=== PATIENT | male | born 1985 | race Caucasian/White ===

== ENCOUNTER 2016-11-16 16:54 | Emergency (ER) | payer OTHER ==
[2016-11-16 17:14] VITALS: BP 139/61; PULSE 81; RESP 16; TEMP 97.6
--- NOTE | 2016-11-16 17:37 | ED ---
General Adult HPI - General Chief complaint: Psychiatric Symptoms Stated complaint: mental health Time Seen by Provider: 11/16/16 17:16 Source: patient, family, RN notes reviewed Mode of arrival: ambulatory Limitations: no limitations - History of Present Illness Initial comments: Chief complaint history of present a 31-year-old male here with his significant other. The patient reports is a heroin addict and has a history of depression ADD and PTSD. He had been on medications or depression on 2 previous occasions and when he was on those he felt better. He also reports that his heroin addict last used this morning. Overdosed last year. Narcan program was explained to him and his significant other and all they have to do is call the health department to get the Narcan. She states he is here and wants to talk to a psychiatric nurse but is not suicidal. - Related Data Home Medications Medication Instructions Recorded Confirmed Acetaminophen [Tylenol] 325 mg PO Q4H PRN 11/16/16 11/16/16 Aspirin 325 mg PO DAILY PRN 11/16/16 11/16/16 Allergies Allergy/AdvReac Type Severity Reaction Status Date / Time No Known Allergies Allergy Verified 11/16/16 18:08 Review of Systems ROS Statement: Those systems with pertinent positive or pertinent negative responses have been documented in the HPI. Review of systems this time patient denies headache chest pain shows breath GI/ problems. All systems are reviewed. Past medical problems significant for ADD, PTSD depression. The patient's other problems include IV drug abuse for a long period of time usually opiates only. The patient had a history of septic arthritis due to IVDA to his left knee. His years ago. No problems this time. The patient's surgeries include left knee aspiration. Family history no cancers. Patient denies any ALLERGIES she does smoke strongly encouraged to stop denies alcohol use. ROS Other: All systems not noted in ROS Statement are negative. Past Medical History Past Medical History: Osteoarthritis (OA) Additional Past Medical History / Comment(s): left knee septic arthritis; hepatitis C History of Any Multi-Drug Resistant Organisms: MRSA Date of last positivie culture/infection: 02/22/16 MDRO Source:: Left Knee Past Surgical History: Orthopedic Surgery Additional Past Surgical History / Comment(s): left knee Past Psychological History: Depression Smoking Status: Current every day smoker Past Alcohol Use History: None Reported Past Drug Use History: Heroin General Exam - General Exam Comments Initial Comments: General: The patient is awake and alert, in no distress, and does not appear acutely ill. States she is depressed and wants to be put back on medications that worked well for him in the past. Denies being suicidal. Vital signs shows temperature 97.6 pulse 81 respiratory rate 16 pulse ox 96% room air blood pressure 139/61 Eye: Pupils are equal, round and reactive to light, extra-ocular movements are intact ; there is normal conjunctiva bilaterally. No signs of icterus. Ears, nose, mouth and throat: There are moist mucous membranes and no oral lesions. Neck: The neck is supple, there is no tenderness . Cardiovascular: There is a regular rate and rhythm. No murmur, rub or gallop is appreciated. Respiratory: Lungs are clear to auscultation, respirations are non-labored, breath sounds are equal. No wheezes, stridor, rales, or rhonchi. Gastrointestinal: No abdominal pain, no complaint of nausea vomiting or diarrhea. Back: There is no tenderness to palpation in the midline. There is no obvious deformity. No rashes noted. 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 Told to clean daily apply bacitracin and bandages. He demonstrates full range of motion. Neurological: No neuro deficits. Skin: Skin is warm and dry and no rashes or lesions are noted. Multiple tattoos Psychiatric: Past history of PTSD and depression. Wants to speak to a psychiatric nurse. He wants to get involved with an outpatient mental health program. Limitations: no limitations Course Vital Signs 11/16/16 17:11 Temperature 97.6 F Pulse Rate 81 Respiratory 16 Rate Blood Pressure 139/61 O2 Sat by Pulse 96 Oximetry Medical Decision Making - Medical Decision Making Medical decision making the patient's urine toxicology was positive for opiates and cocaine. Breath alcohol negative. EPS was notified to consult patient. The patient was evaluated by the psychiatric nurse. The plan the patient will be given follow-up numbers and recommendations for tomorrow. Including rehab program for opiate abuse. Again the patient is not suicidal. - Lab Data Lab Results 11/16/16 Range/Units 18:07 Urine Opiates Screen Detected H (NotDetected) Ur Oxycodone Screen Not Detected (NotDetected) Urine Methadone Screen Not Detected (NotDetected) Ur Propoxyphene Screen Not Detected (NotDetected) Ur Barbiturates Screen Not Detected (NotDetected) U Tricyclic Antidepress Not Detected (NotDetected) Ur Phencyclidine Scrn Not Detected (NotDetected) Ur Amphetamines Screen Not Detected (NotDetected) U Methamphetamines Scrn Not Detected (NotDetected) U Benzodiazepines Scrn Not Detected (NotDetected) Urine Cocaine Screen Detected H (NotDetected) U Marijuana (THC) Screen Not Detected (NotDetected) Disposition Clinical Impression: Depression, Opiate dependence Disposition: HOME SELF-CARE Condition: Fair Instructions: Depression (ED), Narcotic Abuse (ED) Additional Instructions: All follow up with community mental health. Consider rehab programs as listed on paperwork provided. Referrals: Karo Nunes MD [Primary Care Provider] - 1-2 days Time of Disposition: 21:28
== END 2016-11-16 21:35 | disposition home or self-care (01) ==
LOC: EC 16:54
DX: F11.20 Opioid dependence, uncomplicated (principal); F32.9 Major depressive disorder, single episode, unspecified; F17.200 Nicotine dependence, unspecified, uncomplicated
CPT/HCPCS: 80306; 82075; 99284

== ENCOUNTER 2018-06-20 04:34 | Emergency (ER) | payer OTHER ==
[2018-06-20 05:21] VITALS: RESP 18
[2018-06-20 06:07] LABS: Basophils # (A) 0.1 k/uL (0-0.2); Basophils % (A) 1 %; Eosinophils # (A) 0.2 k/uL (0-0.7); Eosinophils % (A) 3 %; HCT 43.8 % (39.0-53.0); HGB 14.8 gm/dL (13.0-17.5); Lymphocytes # (A) 1.1 k/uL (1.0-4.8); Lymphocytes % (A) 15 %; MCH 30.3 pg (25.0-35.0); MCHC 33.7 g/dL (31.0-37.0); Mean Platelet Volume 8.3; Monocytes # (A) 0.6 k/uL (0-1.0); Monocytes % (A) 8 %; Neutrophils # (A) 4.9 k/uL (1.3-7.7); Neutrophils % (A) 71 %; Platelet Count 180 k/uL (150-450); RBC 4.87 m/uL (4.30-5.90); RDW 13.3 % (11.5-15.5); WBC 6.9 k/uL (3.8-10.6)
[2018-06-20 06:16] LABS: ALT 20 U/L (21-72); AST 47 U/L (17-59); Albumin 4.4 g/dL (3.5-5.0); Alkaline Phosphatase 91 U/L (38-126); Amylase 49 U/L (30-110); Anion Gap 9 mmol/L; Blood Urea Nitrogen 19 mg/dL (9-20); Calcium 9.1 mg/dL (8.4-10.2); Carbon Dioxide 25 mmol/L (22-30); Chloride 103 mmol/L (98-107); Glucose 88 mg/dL (74-99); Lipase 40 U/L (23-300); Sodium 137 mmol/L (137-145); Total Protein 7.3 g/dL (6.3-8.2)
[2018-06-20 06:18] LABS: Potassium 4.8 mmol/L (3.5-5.1)
--- NOTE | 2018-06-20 07:10 | ED ---
Abdominal Pain HPI - General Source: patient Mode of arrival: ambulatory Limitations: no limitations - History of Present Illness MD Complaint: abdominal pain -: minutes(s) Location: LUQ, LLQ Radiation: none Migration to: no migration Severity: moderate Quality: cramping, aching Consistency: constant Improves With: nothing Worsens With: nothing Associated Symptoms: nausea, diarrhea (3 bowel movements) <Yovani Branch - Last Filed: 06/20/18 07:10> <Carlos Ramsey - Last Filed: 06/20/18 08:26> - General Chief Complaint: Abdominal Pain Stated Complaint: Abdominal Pain Time Seen by Provider: 06/20/18 05:10 - History of Present Illness Initial Comments: This patient is a 33-year-old man who presents to be evaluated for left-sided abdominal pain. He states that it reminds him of previous episode of colitis that he had. He states that over the past day he also had 3 bowel movements. He has not noticed blood or mucus. No fevers, possible chills. (Yovani rBanch) - Related Data Home Medications Medication Instructions Recorded Confirmed Acetaminophen [Tylenol] 325 mg PO Q4H PRN 11/16/16 11/16/16 Aspirin 325 mg PO DAILY PRN 11/16/16 11/16/16 Allergies Allergy/AdvReac Type Severity Reaction Status Date / Time No Known Allergies Allergy Verified 06/20/18 04:52 Review of Systems ROS Other: All systems not noted in ROS Statement are negative. Constitutional: Denies: fever, chills Respiratory: Denies: cough, dyspnea Cardiovascular: Denies: chest pain, palpitations, edema Gastrointestinal: Reports: abdominal pain, nausea, diarrhea. Denies: constipation, melena, hematochezia Genitourinary: Denies: dysuria, hematuria Musculoskeletal: Denies: back pain Skin: Denies: rash Neurological: Denies: headache <Yovani Branch - Last Filed: 06/20/18 07:10> ROS Other: All systems not noted in ROS Statement are negative. <Carlos Ramsey - Last Filed: 06/20/18 08:26> ROS Statement: Those systems with pertinent positive or pertinent negative responses have been documented in the HPI. Past Medical History Past Medical History: Osteoarthritis (OA) Additional Past Medical History / Comment(s): left knee septic arthritis; hepatitis C History of Any Multi-Drug Resistant Organisms: MRSA Date of last positivie culture/infection: 02/22/16 MDRO Source:: Left Knee Past Surgical History: Orthopedic Surgery Additional Past Surgical History / Comment(s): left knee Past Psychological History: Depression Smoking Status: Current every day smoker Past Alcohol Use History: None Reported Past Drug Use History: Heroin, Prescription Drug Abuse <Yovani Branch - Last Filed: 06/20/18 07:10> General Exam Limitations: no limitations General appearance: alert, in no apparent distress Head exam: Present: atraumatic, normocephalic Eye exam: Present: normal appearance. Absent: scleral icterus, conjunctival injection ENT exam: Present: normal oropharynx Respiratory exam: Present: normal lung sounds bilaterally. Absent: respiratory distress, wheezes, rales, rhonchi, stridor Cardiovascular Exam: Present: regular rate, normal rhythm, normal heart sounds. Absent: systolic murmur, diastolic murmur, rubs, gallop GI/Abdominal exam: Present: soft, tenderness (Vision is left-sided abdominal tenderness without rebound or guarding), normal bowel sounds. Absent: distended , guarding, rebound, rigid, mass, pulsatile mass, hernia Extremities exam: Present: normal inspection, normal capillary refill. Absent: pedal edema, calf tenderness Back exam: Present: normal inspection. Absent: CVA tenderness (R), CVA tenderness (L) Neurological exam: Present: alert Skin exam: Present: warm, dry, intact, normal color. Absent: rash <Yovani Branch - Last Filed: 06/20/18 07:10> Vital Signs 06/20/18 06/20/18 06/20/18 04:49 05:14 07:00 Temperature 98.2 F 98.2 F Pulse Rate 76 75 Respiratory 19 18 18 Rate Blood Pressure 120/67 123/82 121/48 O2 Sat by Pulse 98 99 97 Oximetry 06/20/18 07:30 Temperature Pulse Rate Respiratory 18 Rate Blood Pressure 122/51 O2 Sat by Pulse 97 Oximetry Medical Decision Making - Lab Data Result diagrams: 06/20/18 05:43 06/20/18 05:43 <Yovani Branch - Last Filed: 06/20/18 07:10> - Lab Data Result diagrams: 06/20/18 05:43 06/20/18 05:43 <Carlos Ramsey - Last Filed: 06/20/18 08:26> - Medical Decision Making CT abdomen pelvis show no acute abnormality. Patient was feeling better drinking water in the emergency department. Patient states she will follow-up. (Carlos Ramsey) - Lab Data Lab Results 06/20/18 06/20/18 Range/Units 05:43 05:43 WBC 6.9 (3.8-10.6) k/uL RBC 4.87 (4.30-5.90) m/uL Hgb 14.8 (13.0-17.5) gm/dL Hct 43.8 (39.0-53.0) % MCV 90.0 (80.0-100.0) fL MCH 30.3 (25.0-35.0) pg MCHC 33.7 (31.0-37.0) g/dL RDW 13.3 (11.5-15.5) % Plt Count 180 (150-450) k/uL Neutrophils % 71 % Lymphocytes % 15 % Monocytes % 8 % Eosinophils % 3 % Basophils % 1 % Neutrophils # 4.9 (1.3-7.7) k/uL Lymphocytes # 1.1 (1.0-4.8) k/uL Monocytes # 0.6 (0-1.0) k/uL Eosinophils # 0.2 (0-0.7) k/uL Basophils # 0.1 (0-0.2) k/uL ESR Cancelled Sodium 137 (137-145) mmol/L Potassium 4.8 (3.5-5.1) mmol/L Chloride 103 (98-107) mmol/L Carbon Dioxide 25 (22-30) mmol/L Anion Gap 9 mmol/L BUN 19 (9-20) mg/dL Creatinine 0.85 (0.66-1.25) mg/dL Est GFR (CKD-EPI)AfAm >90 (>60 ml/min/1.73 sqM) Est GFR (CKD-EPI)NonAf >90 (>60 ml/min/1.73 sqM) Glucose 88 (74-99) mg/dL Calcium 9.1 (8.4-10.2) mg/dL Total Bilirubin 1.0 (0.2-1.3) mg/dL AST 47 (17-59) U/L ALT 20 L (21-72) U/L Alkaline Phosphatase 91 (38-126) U/L Total Protein 7.3 (6.3-8.2) g/dL Albumin 4.4 (3.5-5.0) g/dL Amylase 49 (30-110) U/L Lipase 40 (23-300) U/L Disposition <Yovani Branch - Last Filed: 06/20/18 07:10> Is patient prescribed a controlled substance at d/c from ED?: No Time of Disposition: 08:26 <Carlos Ramsey - Last Filed: 06/20/18 08:26> Clinical Impression: Abdominal pain Disposition: HOME SELF-CARE Instructions: Abdominal Pain (ED) Referrals: Karo Nunes MD [Primary Care Provider] - 1-2 days
--- NOTE | 2018-06-20 07:38 | CT ---
EXAMINATION TYPE: CT abdomen pelvis wo con DATE OF EXAM: 06/20/2018 COMPARISON: NONE HISTORY: Abdominal pain CT DLP: 412.3 mGycm Automated exposure control for dose reduction was used. FINDINGS: Visualized portions of the lungs are clear. There is no pleural or pericardial fluid. The h eart is not enlarged. Within the abdomen, the liver is upper limits of normal in size. The gallbladder is contracted. The s pleen is unremarkable. Both adrenal glands are normal. There is no evidence of hydronephrosis or nephrolithiasis. The pancreas is not well-visualized. The retroperitoneum is unremarkable. The bladder is unremarkable. Both large and small bowel appear normal. The appendix is not visualized with certainty. There is no free fluid and no free air. No bony lesion is seen. IMPRESSION: UNREMARKABLE NONCONTRAST CT OF THE ABDOMEN AND PELVIS.
[2018-06-20 09:03] VITALS: BP 114/68; PULSE 76; TEMP 98.7
== END 2018-06-20 09:03 | disposition home or self-care (01) ==
LOC: EC 04:34
DX: R10.12 Left upper quadrant pain (principal); R10.32 Left lower quadrant pain; R19.7 Diarrhea, unspecified; R11.0 Nausea; F17.200 Nicotine dependence, unspecified, uncomplicated; Z79.82 Long term (current) use of aspirin
CPT/HCPCS: 36415; 74176; 80053; 82150; 83690; 85025; 85652; 99284

== ENCOUNTER 2019-09-06 23:32 | Observation (INO) | payer OTHER ==
[2019-09-07] MEDS ORDERED: PIPERACILLIN-TAZOBACTAM 3.375 GM in SODIUM CHLORIDE 0.9% 100 ML IVPB STA (00:38)
[2019-09-07] MEDS ORDERED: ONDANSETRON 4 MG/2 ML VIAL IVP STA (00:51)
[2019-09-07 01:22] LABS: Basophils % (A) 0 %; Eosinophils # (A) 0.1 k/uL (0-0.7); Eosinophils % (A) 1 %; HCT 48.3 % (39.0-53.0); HGB 15.9 gm/dL (13.0-17.5); Lymphocytes # (A) 2.1 k/uL (1.0-4.8); Lymphocytes % (A) 14 %; MCH 29.7 pg (25.0-35.0); MCHC 32.8 g/dL (31.0-37.0); MCV 90.4 fL (80.0-100.0); Mean Platelet Volume 8.2; Monocytes # (A) 1.1 k/uL (0-1.0); Monocytes % (A) 7 %; Neutrophils # (A) 12.1 k/uL (1.3-7.7); Neutrophils % (A) 77 %; Platelet Count 353 k/uL (150-450); RBC 5.34 m/uL (4.30-5.90); RDW 13.3 % (11.5-15.5); WBC 15.6 k/uL (3.8-10.6)
--- NOTE | 2019-09-07 01:23 | ED ---
General Adult HPI - General Chief complaint: Psychiatric Symptoms Stated complaint: mental health Time Seen by Provider: 09/06/19 23:40 Source: patient, EMS Mode of arrival: EMS Limitations: no limitations - History of Present Illness Initial comments: Catarino is a 34-year-old male with a history of depression and polysubstance abuse who presents to the emergency department today with multiple complaints. Patient was seen and evaluated earlier in the week for possible abscess on his left forearm secondary to IV drug abuse, he was prescribed Bactrim and reports that since beginning Bactrim the skin on his penis is begun peeling off and is incredibly painful. The patient reports that he was tested for sexual transmitted infections in April and was negative and has not had any new sexual partner since that time. Patient also adamantly denies any attempt to shoot up or inject drugs into any of his penile veins. Patient reports he doesn't feel well he feels nauseated but denies fevers cough or shortness of breath. Patient also states he's been off of all his medications including Suboxone and Trileptal and Klonopin for over a week. Patient reports because he can get his Suboxone he's been using heroin and just feels very sick and unwell. Patient states that because of everything going on he feels suicidal and just doesn't want to live anymore. - Related Data Home Medications Medication Instructions Recorded Confirmed Acetaminophen [Tylenol] 325 mg PO Q4H PRN 11/16/16 11/16/16 Aspirin 325 mg PO DAILY PRN 11/16/16 11/16/16 Allergies Allergy/AdvReac Type Severity Reaction Status Date / Time No Known Allergies Allergy Verified 09/06/19 23:48 Review of Systems ROS Statement: Those systems with pertinent positive or pertinent negative responses have been documented in the HPI. ROS Other: All systems not noted in ROS Statement are negative. Past Medical History Past Medical History: Osteoarthritis (OA) Additional Past Medical History / Comment(s): left knee septic arthritis; hepatitis C History of Any Multi-Drug Resistant Organisms: MRSA Date of last positivie culture/infection: 02/22/16 MDRO Source:: Left Knee Past Surgical History: Orthopedic Surgery Additional Past Surgical History / Comment(s): left knee Past Psychological History: Anxiety, Bipolar, Depression, PTSD Smoking Status: Current every day smoker Past Alcohol Use History: None Reported Past Drug Use History: Cocaine, Heroin, Prescription Drug Abuse General Exam - General Exam Comments Initial Comments: Physical Exam GENERAL: Patient is well-developed and well-nourished. Patient is nontoxic and well- hydrated and is in no distress. HENT: Normocephalic, Atraumatic. EYES: PERRL, EOMI PULMONARY: Unlabored respirations. No audible rales rhonchi or wheezing was noted. CARDIOVASCULAR: There is a regular rate and rhythm without any murmurs gallops or rubs. ABDOMEN: Soft and nontender with normal bowel sounds. SKIN: Skin is clear with no lesions or rashes and otherwise unremarkable. : Circumcised penis with sloughing of the skin on approximately 50% of the dorsal surface, there is some purulent drainage noted proximal to the glans on the dorsal surface NEUROLOGIC: Patient is alert and oriented x3. Moving all extremities spontaneously MUSCULOSKELETAL: Normal extremities with adequate strength and full range of motion. No lower extremity swelling or edema. No calf tenderness. PSYCHIATRIC: Depressed, suicidal Limitations: no limitations Course Vital Signs 09/06/19 23:38 Temperature 98.0 F Pulse Rate 111 H Respiratory 16 Rate Blood Pressure 122/69 O2 Sat by Pulse 98 Oximetry Medical Decision Making - Medical Decision Making The patient was seen and evaluated, history is obtained from the patient History and physical exam are concerning for infection on the penis, as well as suicidal ideation and polysubstance abuse Labs were ordered IV Zosyn ordered Labs resulted with leukocytosis, no elevation of lactic acid Patient will be admitted for IV antibiotics and evaluation by urology. Urology and psychiatry will be Consult in the patient's care. - Lab Data Result diagrams: 09/07/19 01:02 09/07/19 01:02 Lab Results 09/07/19 09/07/19 09/07/19 Range/Units 01:02 01:02 01:02 WBC 15.6 H (3.8-10.6) k/uL RBC 5.34 (4.30-5.90) m/uL Hgb 15.9 (13.0-17.5) gm/dL Hct 48.3 (39.0-53.0) % MCV 90.4 (80.0-100.0) fL MCH 29.7 (25.0-35.0) pg MCHC 32.8 (31.0-37.0) g/dL RDW 13.3 (11.5-15.5) % Plt Count 353 (150-450) k/uL Neutrophils % 77 % Lymphocytes % 14 % Monocytes % 7 % Eosinophils % 1 % Basophils % 0 % Neutrophils # 12.1 H (1.3-7.7) k/uL Lymphocytes # 2.1 (1.0-4.8) k/uL Monocytes # 1.1 H (0-1.0) k/uL Eosinophils # 0.1 (0-0.7) k/uL Basophils # 0.0 (0-0.2) k/uL Sodium 139 (137-145) mmol/L Potassium 4.6 (3.5-5.1) mmol/L Chloride 101 (98-107) mmol/L Carbon Dioxide 28 (22-30) mmol/L Anion Gap 10 mmol/L BUN 22 H (9-20) mg/dL Creatinine 1.62 H (0.66-1.25) mg/dL Est GFR (CKD-EPI)AfAm 63 (>60 ml/min/1.73 sqM) Est GFR (CKD-EPI)NonAf 55 (>60 ml/min/1.73 sqM) Glucose 94 (74-99) mg/dL Plasma Lactic Acid Alejandro 1.4 (0.7-2.0) mmol/L Calcium 9.5 (8.4-10.2) mg/dL Total Bilirubin 0.4 (0.2-1.3) mg/dL AST 34 (17-59) U/L ALT 29 (4-49) U/L Alkaline Phosphatase 131 H (38-126) U/L Total Protein 8.1 (6.3-8.2) g/dL Albumin 4.9 (3.5-5.0) g/dL Urine Color Urine Appearance (Clear) Urine pH (5.0-8.0) Ur Specific [place] (1.001-1.035) Urine Protein (Negative) Urine Glucose (UA) (Negative) Urine Ketones (Negative) Urine Blood (Negative) Urine Nitrite (Negative) Urine Bilirubin (Negative) Urine Urobilinogen (<2.0) mg/dL Ur Leukocyte Esterase (Negative) Urine RBC (0-5) /hpf Urine WBC (0-5) /hpf Urine WBC Clumps (None) /hpf Ur Squamous Epith Cells (0-4) /hpf Urine Bacteria (None) /hpf Hyaline Casts (0-2) /lpf Urine Mucus (None) /hpf Salicylates <1.0 mg/dL Urine Opiates Screen (NotDetected) Ur Oxycodone Screen (NotDetected) Urine Methadone Screen (NotDetected) Ur Propoxyphene Screen (NotDetected) Acetaminophen <10.0 ug/mL Ur Barbiturates Screen (NotDetected) U Tricyclic Antidepress (NotDetected) Ur Phencyclidine Scrn (NotDetected) Ur Amphetamines Screen (NotDetected) U Methamphetamines Scrn (NotDetected) U Benzodiazepines Scrn (NotDetected) Urine Cocaine Screen (NotDetected) U Marijuana (THC) Screen (NotDetected) Serum Alcohol <10 mg/dL 09/07/19 Range/Units 01:27 WBC (3.8-10.6) k/uL RBC (4.30-5.90) m/uL Hgb (13.0-17.5) gm/dL Hct (39.0-53.0) % MCV (80.0-100.0) fL MCH (25.0-35.0) pg MCHC (31.0-37.0) g/dL RDW (11.5-15.5) % Plt Count (150-450) k/uL Neutrophils % % Lymphocytes % % Monocytes % % Eosinophils % % Basophils % % Neutrophils # (1.3-7.7) k/uL Lymphocytes # (1.0-4.8) k/uL Monocytes # (0-1.0) k/uL Eosinophils # (0-0.7) k/uL Basophils # (0-0.2) k/uL Sodium (137-145) mmol/L Potassium (3.5-5.1) mmol/L Chloride (98-107) mmol/L Carbon Dioxide (22-30) mmol/L Anion Gap mmol/L BUN (9-20) mg/dL Creatinine (0.66-1.25) mg/dL Est GFR (CKD-EPI)AfAm (>60 ml/min/1.73 sqM) Est GFR (CKD-EPI)NonAf (>60 ml/min/1.73 sqM) Glucose (74-99) mg/dL Plasma Lactic Acid Alejandro (0.7-2.0) mmol/L Calcium (8.4-10.2) mg/dL Total Bilirubin (0.2-1.3) mg/dL AST (17-59) U/L ALT (4-49) U/L Alkaline Phosphatase (38-126) U/L Total Protein (6.3-8.2) g/dL Albumin (3.5-5.0) g/dL Urine Color Yellow Urine Appearance Turbid (Clear) Urine pH 5.5 (5.0-8.0) Ur Specific [place] 1.022 (1.001-1.035) Urine Protein 2+ H (Negative) Urine Glucose (UA) Negative (Negative) Urine Ketones Negative (Negative) Urine Blood Trace H (Negative) Urine Nitrite Negative (Negative) Urine Bilirubin Negative (Negative) Urine Urobilinogen <2.0 (<2.0) mg/dL Ur Leukocyte Esterase Negative (Negative) Urine RBC 3 (0-5) /hpf Urine WBC 10 H (0-5) /hpf Urine WBC Clumps Few H (None) /hpf Ur Squamous Epith Cells 2 (0-4) /hpf Urine Bacteria Rare H (None) /hpf Hyaline Casts 152 H (0-2) /lpf Urine Mucus Few H (None) /hpf Salicylates mg/dL Urine Opiates Screen Detected H (NotDetected) Ur Oxycodone Screen Not Detected (NotDetected) Urine Methadone Screen Not Detected (NotDetected) Ur Propoxyphene Screen Not Detected (NotDetected) Acetaminophen ug/mL Ur Barbiturates Screen Not Detected (NotDetected) U Tricyclic Antidepress Detected H (NotDetected) Ur Phencyclidine Scrn Not Detected (NotDetected) Ur Amphetamines Screen Not Detected (NotDetected) U Methamphetamines Scrn Not Detected (NotDetected) U Benzodiazepines Scrn Not Detected (NotDetected) Urine Cocaine Screen Detected H (NotDetected) U Marijuana (THC) Screen Detected H (NotDetected) Serum Alcohol mg/dL Disposition Clinical Impression: Polysubstance abuse, Nonadherence to medication, Depression, Skin infection Disposition: ADMITTED IP TO THIS HOSP Condition: Stable Is patient prescribed a controlled substance at d/c from ED?: No Referrals: Jensen Ledezma MD [Primary Care Provider] - 1-2 days
[2019-09-07 01:34] LABS: ALT 29 U/L (4-49); AST 34 U/L (17-59); Acetaminophen <10.0 ug/mL; African American GFR (CKD) 63 (>60 ml/min/1.73 sqM); Albumin 4.9 g/dL (3.5-5.0); Alcohol <10 mg/dL; Alkaline Phosphatase 131 U/L (38-126); Anion Gap 10 mmol/L; Blood Urea Nitrogen 22 mg/dL (9-20); Calcium 9.5 mg/dL (8.4-10.2); Carbon Dioxide 28 mmol/L (22-30); Chloride 101 mmol/L (98-107); Glucose 94 mg/dL (74-99); Non-African American GFR(CKD) 55 (>60 ml/min/1.73 sqM); Potassium 4.6 mmol/L (3.5-5.1); Salicylate <1.0 mg/dL; Sodium 139 mmol/L (137-145); Total Bilirubin 0.4 mg/dL (0.2-1.3); Total Protein 8.1 g/dL (6.3-8.2)
[2019-09-07 01:53] LABS: Appearance,Urine Turbid (Clear); Bacteria,Urine Rare /hpf; Bilirubin,Urine Negative (Negative); Blood,Urine Trace (Negative); Color,Urine Yellow; Glucose,Urine (UA) Negative (Negative); Hyaline Casts,Urine 152 /lpf (0-2); Ketones,Urine Negative (Negative); Leukocyte Esterase,Urine Negative (Negative); Mucus,Urine Few /hpf; Nitrite,Urine Negative (Negative); PH, Urine 5.5 (5.0-8.0); Protein,Urine 2+ (Negative); RBC,Urine 3 /hpf (0-5); Specific Gravity,Urine 1.022 (1.001-1.035); Squamous Epithelial Cell,Urine 2 /hpf (0-4); Urobilinogen,Urine <2.0 mg/dL (<2.0); WBC,Urine 10 /hpf (0-5)
[2019-09-07 01:58] LABS: Amphetamine Screen,Urine Not Detected (NotDetected); Barbiturate Screen,Urine Not Detected (NotDetected); Benzodiazepines Screen,Urine Not Detected (NotDetected); Cocaine Screen,Urine Detected (NotDetected); Methadone Screen, Urine Not Detected (NotDetected); Opiate Screen,Urine Detected (NotDetected); Oxycodone Screen, Urine Not Detected (NotDetected); Phencyclidine Screen,Urine Not Detected (NotDetected); Tricyclic Antidepressant,Urine Detected (NotDetected); Urn Cannabinoid Scrn Detected (NotDetected)
[2019-09-07] MEDS ORDERED: ONDANSETRON 4 MG/2 ML VIAL IVP PRN (02:41)
[2019-09-07] MEDS ORDERED: HYDROcodone/APAP 5-325MG 1 EACH TAB PO PRN (02:41)
[2019-09-07] MEDS ORDERED: NALOXONE 0.4 MG/ML 1 ML VIAL IV PRN (02:41)
[2019-09-07] MEDS ORDERED: VANCOMYCIN IV PER PHARMACY 1 EACH MISC MISCELLANE PRN (10:45)
--- NOTE | 2019-09-07 11:37 | P.GSCN ---
History of Present Illness Consult date: 09/07/19 History of present illness: This is a 34-year-old gentleman with substance abuse who came in the hospital with a severe penile rash. The patient injects heroin because he cannot get his alternative medications per the patient. He has had some arm abscesses from injections. He is placed on Bactrim in April and developed a penile rash on the head of his penis. He was told he was ALLERGIC but apparently took Bactrim again for another recent infection and now has another rash on the head of his penis. He he has had no urethral discharge. He was checked for STDs in April and it was negative. He has no dysuria frequency urgency or infection. Review of Systems All systems: negative - Constitutional Denies fever, Denies weight loss - EENT Eyes: denies blurred vision Ears, nose, mouth and throat: Denies dysphagia - Cardiovascular Denies chest pain, Denies shortness of breath - Respiratory Denies cough, Denies 7 - Gastrointestinal Reports as per HPI - Genitourinary Denies dysuria, Denies hematuria - Integumentary Denies rash, Denies unusual bruising - Neurological Denies headaches, Denies syncope - Hematologic/Lymphatic Denies easy bleeding, Denies easy bruising Past Medical History Past Medical History: Osteoarthritis (OA) Additional Past Medical History / Comment(s): left knee septic arthritis; hepatitis C History of Any Multi-Drug Resistant Organisms: MRSA Year Discovered:: 02/22/16 MDRO Source:: Left Knee Past Surgical History: Orthopedic Surgery Additional Past Surgical History / Comment(s): left knee Past Psychological History: Anxiety, Bipolar, Depression, PTSD Smoking Status: Current every day smoker Past Alcohol Use History: None Reported Past Drug Use History: Cocaine, Heroin, Prescription Drug Abuse - Past Family History Father Family Medical History: No Reported History Medications and Allergies Home Medications Medication Instructions Recorded Confirmed Type Buprenorphine HCl/Naloxone HCl 1 film SL BID 09/07/19 09/07/19 History [Suboxone 8 mg-2 mg Sl Film] OXcarbazepine [Trileptal] 600 mg PO BID 09/07/19 09/07/19 History QUEtiapine [SEROquel] 200 mg PO HS 09/07/19 09/07/19 History Allergies Allergy/AdvReac Type Severity Reaction Status Date / Time sulfamethoxazole AdvReac Unknown Verified 09/07/19 03:42 [From Bactrim] trimethoprim [From Bactrim] AdvReac Unknown Verified 09/07/19 03:42 Surgical - Exam Vital Signs Temp Pulse Resp BP Pulse Ox 98.0 F 111 H 16 122/69 98 09/06/19 23:38 09/06/19 23:38 09/06/19 23:38 09/06/19 23:38 09/06/19 23:38 - General well developed, well nourished, no distress - Eyes PERRL - ENT no hearing loss - Neck trachea midline - Respiratory normal expansion, normal respiratory effort - Cardiovascular Rhythm: regular - Abdomen Abdomen: soft - Genitourinary The patient is circumcised. Head of the penis is indurated and there is skin sloughing. There is some mucosal debris on the skin were is adhered to his shorts. He has no groin adenopathy. The scrotum testes and epididymis are all unremarkable - Neurologic normal coordination, normal sensation - Musculoskeletal normal posture - Psychiatric oriented to time, oriented to person, oriented to place, speech is normal, memory intact Results - Labs 09/07/19 01:02 09/07/19 01:02 Abnormal Lab Results - Last 24 Hours (Table) 09/07/19 09/07/19 09/07/19 Range/Units 01:02 01:02 01:27 WBC 15.6 H (3.8-10.6) k/uL Neutrophils # 12.1 H (1.3-7.7) k/uL Monocytes # 1.1 H (0-1.0) k/uL BUN 22 H (9-20) mg/dL Creatinine 1.62 H (0.66-1.25) mg/dL Alkaline Phosphatase 131 H (38-126) U/L Urine Protein 2+ H (Negative) Urine Blood Trace H (Negative) Urine WBC 10 H (0-5) /hpf Urine WBC Clumps Few H (None) /hpf Urine Bacteria Rare H (None) /hpf Hyaline Casts 152 H (0-2) /lpf Urine Mucus Few H (None) /hpf Urine Opiates Screen Detected H (NotDetected) U Tricyclic Antidepress Detected H (NotDetected) Urine Cocaine Screen Detected H (NotDetected) U Marijuana (THC) Screen Detected H (NotDetected) Diabetes panel 09/07/19 Range/Units 01:02 Sodium 139 (137-145) mmol/L Potassium 4.6 (3.5-5.1) mmol/L Chloride 101 (98-107) mmol/L Carbon Dioxide 28 (22-30) mmol/L BUN 22 H (9-20) mg/dL Creatinine 1.62 H (0.66-1.25) mg/dL Glucose 94 (74-99) mg/dL Calcium 9.5 (8.4-10.2) mg/dL AST 34 (17-59) U/L ALT 29 (4-49) U/L Alkaline Phosphatase 131 H (38-126) U/L Total Protein 8.1 (6.3-8.2) g/dL Albumin 4.9 (3.5-5.0) g/dL Calcium panel 09/07/19 Range/Units 01:02 Calcium 9.5 (8.4-10.2) mg/dL Albumin 4.9 (3.5-5.0) g/dL Pituitary panel 09/07/19 Range/Units 01:02 Sodium 139 (137-145) mmol/L Potassium 4.6 (3.5-5.1) mmol/L Chloride 101 (98-107) mmol/L Carbon Dioxide 28 (22-30) mmol/L BUN 22 H (9-20) mg/dL Creatinine 1.62 H (0.66-1.25) mg/dL Glucose 94 (74-99) mg/dL Calcium 9.5 (8.4-10.2) mg/dL Adrenal panel 09/07/19 Range/Units 01:02 Sodium 139 (137-145) mmol/L Potassium 4.6 (3.5-5.1) mmol/L Chloride 101 (98-107) mmol/L Carbon Dioxide 28 (22-30) mmol/L BUN 22 H (9-20) mg/dL Creatinine 1.62 H (0.66-1.25) mg/dL Glucose 94 (74-99) mg/dL Calcium 9.5 (8.4-10.2) mg/dL Total Bilirubin 0.4 (0.2-1.3) mg/dL AST 34 (17-59) U/L ALT 29 (4-49) U/L Alkaline Phosphatase 131 H (38-126) U/L Total Protein 8.1 (6.3-8.2) g/dL Albumin 4.9 (3.5-5.0) g/dL Assessment and Plan Assessment: Impression: ALLERGIC reaction to Bactrim with secondary penile skin sloughing Recommendations: This is a common reaction to Bactrim. Local care to the penis is appropriate. He becomes to run is difficult to put any underwear on I would consider some Silvadene cream. This should clear without any secondary issues.
[2019-09-07] MEDS: SODIUM CHLORIDE 0.9% 1,000 ML IV SCH ×2 (11:41→20:40)
[2019-09-07] MEDS ORDERED: VANCOMYCIN 1,500 MG in SODIUM CHLORIDE 0.9% 250 ML IVPB SCH (12:00)
[2019-09-07] MEDS: cloNIDine HCL 0.1 MG TAB PO SCH ×2 (12:15→20:38)
--- NOTE | 2019-09-07 15:03 | P.HPIM ---
History of Present Illness The 34-year-old the came in because severe penile rash involving mostly the skin of the penis and also mucosa of the glans penis. Patient had similar reaction the past and used to Bactrim. Patient was started on Bactrim about a week ago for IV drug use and abscess of the left the and patient does have history of hepatitis C. Shortly after taking Bactrim about the about 2-3 days patient started having these penile rash and the squamation of skin. Patient denied any recent sexual activity patient denied multiple sexual partners since last 6 months he will had 2 sexual partners. Patient sexual partners of female patient penile lesions her mostly in not painful. Patient was checked for STDs when he had a similar rash in the past was negative for all STDs presently Chlamydia and gonorrhea testing was ordered from also ordering HSV testing denied any increased urinary frequency or urgency and doesn't have any other lesions in the perirectal area on the scrotal area patient doesn't have any lymphadenopathy in the groin area. Patient has a small abscess in the left forearm patient doesn't have any lymphadenopathy in the left elbow or left axilla. Patient admits to using cocaine and marijuana as well. Review of Systems REVIEW OF SYSTEMS: CONSTITUTIONAL: No fever, no malaise, no fatigue. HEENT: No recent visual problems or hearing problems. Denied any sore throat. CARDIOVASCULAR: No chest pain, orthopnea, PND, no palpitations, no syncope. PULMONARY: No shortness of breath, no cough, no hemoptysis. GASTROINTESTINAL: No diarrhea, no nausea, no vomiting, no abdominal pain. NEUROLOGICAL: No headaches, no weakness, no numbness. HEMATOLOGICAL: Denies any bleeding or petechiae. GENITOURINARY: mentioned in HPI MUSCULOSKELETAL/RHEUMATOLOGICAL: Denies any joint pain, swelling, or any muscle pain. ENDOCRINE: Denies any polyuria or polydipsia. The rest of the 14-point review of systems is negative. Past Medical History Past Medical History: Osteoarthritis (OA) Additional Past Medical History / Comment(s): left knee septic arthritis; hepatitis C History of Any Multi-Drug Resistant Organisms: MRSA Date of last positivie culture/infection: 02/22/16 MDRO Source:: Left Knee Past Surgical History: Orthopedic Surgery Additional Past Surgical History / Comment(s): left knee Past Psychological History: Anxiety, Bipolar, Depression, PTSD Smoking Status: Current every day smoker Past Alcohol Use History: None Reported Past Drug Use History: Cocaine, Heroin, Prescription Drug Abuse - Past Family History Father Family Medical History: No Reported History Medications and Allergies Home Medications Medication Instructions Recorded Confirmed Type Buprenorphine HCl/Naloxone HCl 1 film SL BID 09/07/19 09/07/19 History [Suboxone 8 mg-2 mg Sl Film] OXcarbazepine [Trileptal] 600 mg PO BID 09/07/19 09/07/19 History QUEtiapine [SEROquel] 200 mg PO HS 09/07/19 09/07/19 History Allergies Allergy/AdvReac Type Severity Reaction Status Date / Time sulfamethoxazole AdvReac Unknown Verified 09/07/19 03:42 [From Bactrim] trimethoprim [From Bactrim] AdvReac Unknown Verified 09/07/19 03:42 Physical Exam Vitals: Vital Signs Temp Pulse Pulse Resp BP BP Pulse Ox 09/07/19 12:59 97.7 F 65 15 115/64 96 09/07/19 11:32 98.3 F 65 16 111/57 99 09/07/19 03:48 98 F 86 18 124/63 98 09/07/19 03:22 74 16 110/70 98 09/06/19 23:38 98.0 F 111 H 16 122/69 98 Intake and Output 09/06/19 09/07/19 09/07/19 22:59 06:59 14:59 Intake Total 240 Balance 240 Intake: Oral 240 Other: Voiding Method Toilet # Voids 1 Weight 88.451 kg PHYSICAL EXAMINATION: GENERAL: The patient is alert and oriented x3, not in any acute distress. Well developed, well nourished. HEENT: Pupils are round and equally reacting to light. EOMI. No scleral icterus. No conjunctival pallor. Normocephalic, atraumatic. No pharyngeal erythema. No thyromegaly. CARDIOVASCULAR: S1 and S2 present. No murmurs, rubs, or gallops. PULMONARY: Chest is clear to auscultation, no wheezing or crackles. ABDOMEN: Soft, nontender, nondistended, normoactive bowel sounds. No palpable organomegaly. penile exam and the perirectall exam as mentioned in the HPI MUSCULOSKELETAL: No joint swelling or deformity. EXTREMITIES: No cyanosis, clubbing, or pedal edema. NEUROLOGICAL: Gross neurological examination did not reveal any focal deficits. SKIN: left arm abscess as mentioned above Results CBC & Chem 7: 09/07/19 01:02 09/07/19 01:02 Labs: Abnormal Lab Results - Last 24 Hours (Table) 09/07/19 09/07/19 09/07/19 Range/Units 01:02 01:02 01:27 WBC 15.6 H (3.8-10.6) k/uL Neutrophils # 12.1 H (1.3-7.7) k/uL Monocytes # 1.1 H (0-1.0) k/uL BUN 22 H (9-20) mg/dL Creatinine 1.62 H (0.66-1.25) mg/dL Alkaline Phosphatase 131 H (38-126) U/L Urine Protein 2+ H (Negative) Urine Blood Trace H (Negative) Urine WBC 10 H (0-5) /hpf Urine WBC Clumps Few H (None) /hpf Urine Bacteria Rare H (None) /hpf Hyaline Casts 152 H (0-2) /lpf Urine Mucus Few H (None) /hpf Urine Opiates Screen Detected H (NotDetected) U Tricyclic Antidepress Detected H (NotDetected) Urine Cocaine Screen Detected H (NotDetected) U Marijuana (THC) Screen Detected H (NotDetected) Thrombosis Risk Factor Assmnt - Choose All That Apply Any of the Below Risk Factors Present?: No Assessment and Plan Plan: -penile rash can be ALLERGIC reaction to Bactrim, Bactrim was discontinued, chlamydia gonorrhea and syphilis testing was ordered. She doesn't have any significant penile discharge tomorrow during the HSV testing although patient lesions are painless has a raised papular lesions on the penile skin as well as glans mucosaPA -Acute renal failure seconded to Bactrim I'll obtain urine random sodium, urine random creatinine urine is now feels and urinalysis patient may have ALLERGIC interstitial nephritis in the scenario patient was started on prednisone Richards- abscess in the left arm patient will be started on vancomycin and patient has history of MRSA in the past -History of heroine use: Patient will be started on clonidine and Ativan for Opiate withdrawal as we don't have Suboxone here -bipolar disorder: For which patient will be resumed on his anti-psychotics -Nicotine abuse: Counseling was provided -Hepatitis C for which patient will need to follow with infectious disease a senior copywriter outpatient -Multiple other drug abuse: Counseling was provided
[2019-09-07] MEDS: LORazepam 1 MG TAB PO PRN (15:44)
[2019-09-07] MEDS: NON FORMULARY DRUG (Buprenorphine Hcl/Naloxone Hcl [Suboxone 8 Mg-2 Mg Sl Film] 1 FILM) SUBLINGUAL SCH (20:17)
[2019-09-07] MEDS: OXcarbazepine 300 MG TAB PO SCH (20:38)
[2019-09-07] MEDS ORDERED: QUEtiapine 200 MG TAB PO SCH (21:00)
--- NOTE | 2019-09-07 23:37 | CONS ---
CONSULTATION DATE OF SERVICE: 09/07/2019 REASON FOR CONSULTATION: Penile cellulitis. HISTORY OF PRESENT ILLNESS: The patient is a 34-year-old male with a past medical history significant for skin and soft tissue infection, for which the patient has taken Bactrim in the past. Patient mentioned previously he has taken Bactrim and he developed a superficial ulceration to his penis area, for which the patient did have a workup and was treated for possible syphilis. However, the patient said after he discontinued the Bactrim he got better. Recently the patient developed a skin sore, for which the patient was started on Bactrim DS and a day or two after taking the Bactrim the patient noticed the ulceration on the penis again, and he did have some burning pain associated with it. mostly superficial with no significant surrounding swelling or redness, and the patient denies having any urethral drainage or any foul-smelling drainage from the ulcer area. The patient denies any new sexual partner over the last few months. With these symptoms, the patient was evaluated by the ER physician on arrival in the ER. The patient has been afebrile. The patient did have a mildly elevated white count of 15,000, creatinine 1.62. UA was negative. The patient's drug screen was positive for opiates, tricyclics, cocaine and marijuana. Treponema pallidum was negative. The patient has been diagnosed with penile cellulitis. He was started on vancomycin and admitted to the hospital. Infectious Disease was consulted for further recommendations regarding antibiotic therapy. REVIEW OF SYSTEMS: Positive points have been mentioned in HPI. Rest of the systems are negative. PAST MEDICAL HISTORY: Osteoarthritis, hepatitis C and recurrent MRSA infection. Also history of anxiety and bipolar depression, PTSD. SOCIAL HISTORY: Left knee surgery. SOCIAL HISTORY: The patient is a current everyday smoker. He does admit to cocaine, heroin and prescription drug abuse. ALLERGIES: BACTRIM. MEDICATIONS: The patient is currently on Terrell, Catapres, Ativan, Narcan, Suboxone, Zofran, Trileptal, Seroquel and vancomycin. PHYSICAL EXAMINATION: Blood pressure 122/64 with a pulse of 56, temperature 98. He is 97% on room air. General description is a middle-aged male lying in bed in no distress. No tachypnea or accessory muscle of respiration use. HEENT examination shows no pallor or scleral icterus. Oral mucosa membrane is dry. No pharyngeal erythema or thrush. NECK: Trachea is central. No thyromegaly. LUNGS: Unlabored breathing. Clear to auscultation anteriorly. No wheeze or crackle. HEART: S1, S2. Regular rate and rhythm. ABDOMEN: Soft. No tenderness. EXTREMITIES: No edema of the feet. EXAMINATION OF THE GENITAL AREA: He did have superficial ulceration with no vesicle formation. No significant swelling, redness or any foul-smelling drainage and no urethral drainage. Neurologically the patient is awake, alert, oriented x3. Mood and affect normal. LABS: Hemoglobin 15.9, white count 15.6, neutrophil count 12.1. BUN of 22, creatinine 1.62. Electrolytes have been normal. Liver enzymes are normal. DIAGNOSTIC IMPRESSION AND PLAN: Patient with penile ulceration, more likely related to fixed drug reaction from Bactrim DS. The patient apparently did have similar response while taking Bactrim in the past. Clinically doubt cellulitis or sexually transmitted disease. PLAN: 1. We will discontinue the vancomycin. 2. Will apply Calmoseptine lotion to the open ulcerated area for protection. 3. Will follow on his clinical condition and further adjust medication if needed. Thank you for this consultation. Will follow this patient along with you. MMODL / IJN: [id number] /
[2019-09-08] MEDS: SODIUM CHLORIDE 0.9% 1,000 ML IV SCH (05:20)
[2019-09-08 07:51] LABS: African American GFR (CKD) >90 (>60 ml/min/1.73 sqM); Anion Gap 7 mmol/L; Blood Urea Nitrogen 20 mg/dL (9-20); Calcium 9.1 mg/dL (8.4-10.2); Carbon Dioxide 21 mmol/L (22-30); Chloride 110 mmol/L (98-107); Glucose 103 mg/dL (74-99); Non-African American GFR(CKD) >90 (>60 ml/min/1.73 sqM); Potassium 4.8 mmol/L (3.5-5.1); Sodium 138 mmol/L (137-145)
[2019-09-08] MEDS: cloNIDine HCL 0.1 MG TAB PO SCH (08:32)
[2019-09-08] MEDS: LORazepam 1 MG TAB PO PRN (08:32)
[2019-09-08] MEDS: OXcarbazepine 300 MG TAB PO SCH (08:32)
[2019-09-08] MEDS: NON FORMULARY DRUG (Buprenorphine Hcl/Naloxone Hcl [Suboxone 8 Mg-2 Mg Sl Film] 1 FILM) SUBLINGUAL SCH (08:33)
--- NOTE | 2019-09-08 10:25 | P.DS ---
Providers Date of admission: 09/07/19 02:41 Attending physician: Fabio Borges MD Consults: 09/07/19 10:42 Consult Physician Routine Consulting Provider: Ca Whitfield Consult Reason/Comments: penile lesions Do you want consulting provider notified?: Yes 09/07/19 11:05 Consult Physician Routine Consulting Provider: Jensen Owens Consult Reason/Comments: penile lesions Do you want consulting provider notified?: Yes Primary care physician: [employer] [facility] Course: 34-year-old the came in because severe penile rash involving mostly the skin of the penis and also mucosa of the glans penis. Patient had similar reaction the past and used to Bactrim. Patient was started on Bactrim about a week ago for IV drug use and abscess of the left the and patient does have history of hepatitis C. Shortly after taking Bactrim about the about 2-3 days patient started having these penile rash and the squamation of skin. Patient denied any recent sexual activity patient denied multiple sexual partners since last 6 months he will had 2 sexual partners. Patient sexual partners of female patient penile lesions her mostly in not painful. Patient was checked for STDs when he had a similar rash in the past was negative for all STDs presently Chlamydia and gonorrhea testing was ordered from also ordering HSV testing denied any increased urinary frequency or urgency and doesn't have any other lesions in the perirectal area on the scrotal area patient doesn't have any lymphadenopathy in the groin area. Patient has a small abscess in the left forearm patient doesn't have any lymphadenopathy in the left elbow or left axilla. Patient admits to using cocaine and marijuana as well. 09/08/2019 Patient and medics were discontinued and vancomycin is discontinued his left arm there is a swelling but no is no obvious abscess in that. Patient still has penile lesions his serum creatinine did improve patient will be discharged on 3 days of prednisone for ALLERGIC reaction from Bactrim. PHYSICAL EXAMINATION: GENERAL: The patient is alert and oriented x3, not in any acute distress. Well developed, well nourished. HEENT: Pupils are round and equally reacting to light. EOMI. No scleral icterus. No conjunctival pallor. Normocephalic, atraumatic. No pharyngeal erythema. No thyromegaly. CARDIOVASCULAR: S1 and S2 present. No murmurs, rubs, or gallops. PULMONARY: Chest is clear to auscultation, no wheezing or crackles. ABDOMEN: Soft, nontender, nondistended, normoactive bowel sounds. No palpable organomegaly. penile exam and the perirectall exam as mentioned in the HPI MUSCULOSKELETAL: No joint swelling or deformity. EXTREMITIES: No cyanosis, clubbing, or pedal edema. NEUROLOGICAL: Gross neurological examination did not reveal any focal deficits. SKIN: left arm abscess as mentioned above Assessment and Plan Plan: -penile rash can be ALLERGIC reaction to Bactrim, Bactrim was discontinued, chlamydia gonorrhea and syphilis testing was ordered. Treponema pallidum antibody testing is negative for possibility of other STDs his low patient will be discharged today on 3 days of prednisone and his creatinine has normalized -Acute renal failure secondary to Bactrim patient doesn't have any urine eosinophils, serum creatinine returned to normal. This is probably a false elevation of serum creatinine secondary to Bactrim may have some prerenal azotemia. Antibiotics were discontinued as per recommendations from infectious disease as the left arm doesn't appear to have abscess anymore -History of heroine use: Counseling was provided -bipolar disorder: For which patient will be resumed on his anti-psychotics -Nicotine abuse: Counseling was provided -Hepatitis C for which patient will need to follow with infectious disease a [place] stroenterologist outpatient -Multiple other drug abuse: Counseling was provided Patient Condition at Discharge: Stable Plan - Discharge Summary New Discharge Prescriptions: New Menthol-Zinc Oxide Oint [Calmoseptine Oint] 1 applic TOPICAL BID #30 gm predniSONE [Deltasone] 20 mg PO DAILY #3 tab Continue Buprenorphine HCl/Naloxone HCl [Suboxone 8 mg-2 mg Sl Film] 1 film SL BID QUEtiapine [SEROquel] 200 mg PO HS #30 tab OXcarbazepine [Trileptal] 600 mg PO BID #60 tab Discharge Medication List Buprenorphine HCl/Naloxone HCl [Suboxone 8 mg-2 mg Sl Film] 1 film SL BID 09/07/19 [History] Menthol-Zinc Oxide Oint [Calmoseptine Oint] 1 applic TOPICAL BID #30 gm 09/08/19 [Rx] OXcarbazepine [Trileptal] 600 mg PO BID #60 tab 09/08/19 [Rx] QUEtiapine [SEROquel] 200 mg PO HS #30 tab 09/08/19 [Rx] predniSONE [Deltasone] 20 mg PO DAILY #3 tab 09/08/19 [Rx] Follow up Appointment(s)/Referral(s): Jensen Ledezma MD [Primary Care Provider] - 3 Days Discharge Disposition: HOME SELF-CARE
[2019-09-08 14:19] VITALS: BP 118/57; PULSE 67; RESP 16; TEMP 97.3
--- NOTE | 2019-09-08 14:36 | PN ---
PROGRESS NOTE DATE OF SERVICE: 09/08/2019 REASON FOR FOLLOWUP: Penile ulcer, likely fixed drug reaction. INTERVAL HISTORY: The patient is seen on rounds this morning, patient overall is feeling better. Denies any worsening of his penile ulcer. There is no swelling redness or any drainage. Denies any chest pain, shortness of breath or cough. No abdominal pain, no diarrhea. PHYSICAL EXAMINATION: Blood pressure 130/66, pulse of 60, temperature 97.5. He is 98% on room air. General description is a young male, lying in bed in no distress. RESPIRATORY SYSTEM: Unlabored breathing, clear to auscultation anteriorly. HEART: S1, S2. Regular rate and rhythm. ABDOMEN: Soft, no tenderness. Penile superficial ulceration with no redness or any drainage. LABS: Creatinine 0.80. DIAGNOSTIC IMPRESSION AND PLAN: Patient admitted to the hospital with penile ulceration after he started taking the Bactrim, similar episode in the past, possibly fixed drug reaction. No need for any systemic antibiotic therapy. Continue local care with Calmoseptine moisturizing lotion to keep the area protected and advised not to take any Bactrim in the future. MMODL / IJN: [id number] /
[2019-09-08 16:55] LABS: C. trachomatis,PCR Negative (Neg,Equiv); Chlamydia trachomatis Source Urine; N. gonorrhoeae,PCR Negative (Neg,Equiv); Neisseria Source Urine
== END 2019-09-08 13:45 | disposition home or self-care (01) ==
LOC: EC 23:32 → 5NMEDONC 09-07 02:41 → 6NMEDSUR 09-07 10:35
PROVIDERS: ADMIT Internal Medicine; ATTEND Internal Medicine
DX: R21 Rash and other nonspecific skin eruption (principal); N48.5 Ulcer of penis; D72.829 Elevated white blood cell count, unspecified; L02.414 Cutaneous abscess of left upper limb; N17.9 Acute kidney failure, unspecified; T36.8X5A Adverse effect of other systemic antibiotics, initial encounter; F31.9 Bipolar disorder, unspecified; F41.9 Anxiety disorder, unspecified; F43.10 Post-traumatic stress disorder, unspecified; R45.851 Suicidal ideations; F17.200 Nicotine dependence, unspecified, uncomplicated; B19.20 Unspecified viral hepatitis C without hepatic coma; F11.23 Opioid dependence with withdrawal; F14.10 Cocaine abuse, uncomplicated; M19.90 Unspecified osteoarthritis, unspecified site; Z86.14 Personal history of Methicillin resistant Staphylococcus aureus infection; Z79.899 Other long term (current) drug therapy; Z88.2 Allergy status to sulfonamides; Z79.82 Long term (current) use of aspirin; Z91.14 Patient's other noncompliance with medication regimen
CPT/HCPCS: 96376; 96361; 96375 ×2; 82075; 96365; 99285; 36415; 84300; 82570; 80053; 80048; 83605; 85025; 81001; 87040; 87205; 87491; 87591; 86780; 80306; 83520; G0378 ×3; G0480 ×2; J2543; J3370; J2405; 80320; 80329

== ENCOUNTER 2020-05-27 16:10 | Emergency (ER) | payer OTHER ==
[2020-05-27 16:23] VITALS: RESP 20; TEMP 97.4
--- NOTE | 2020-05-27 16:28 | ED ---
General Adult HPI - General Chief complaint: Anxiety Stated complaint: Anxiety Time Seen by Provider: 05/27/20 16:12 Source: patient, EMS, RN notes reviewed, old records reviewed Mode of arrival: EMS Limitations: no limitations - History of Present Illness Initial comments: 35-year-old male presenting for evaluation of anxiety, panic attack. Patient st ates that he had had some cough cold symptoms, thought that this might be coronavirus, he became very anxious stating that people are not Following the rules and that the disease is spreading to quickly. He states that he was reassured by the paramedics and is feeling 100% better. He states his cold symptoms have improved without specific treatment. He denies fever. Reports a mild sore throat. He is not suicidal or homicidal. - Related Data Home Medications Medication Instructions Recorded Confirmed Buprenorphine HCl/Naloxone HCl 1 film SL BID 09/07/19 09/07/19 [Suboxone 8 mg-2 mg Sl Film] Previous Rx's Medication Instructions Recorded Menthol-Zinc Oxide Oint 1 applic TOPICAL BID #30 gm 09/08/19 [Calmoseptine Oint] OXcarbazepine [Trileptal] 600 mg PO BID #60 tab 09/08/19 QUEtiapine [SEROquel] 200 mg PO HS #30 tab 09/08/19 predniSONE [Deltasone] 20 mg PO DAILY #3 tab 09/08/19 Allergies Allergy/AdvReac Type Severity Reaction Status Date / Time sulfamethoxazole AdvReac Unknown Verified 09/07/19 03:42 [From Bactrim] trimethoprim [From Bactrim] AdvReac Unknown Verified 09/07/19 03:42 Review of Systems ROS Statement: Those systems with pertinent positive or pertinent negative responses have been documented in the HPI. ROS Other: All systems not noted in ROS Statement are negative. Past Medical History Past Medical History: Osteoarthritis (OA) Additional Past Medical History / Comment(s): left knee septic arthritis; hepatitis C History of Any Multi-Drug Resistant Organisms: MRSA Date of last positivie culture/infection: 02/22/16 MDRO Source:: Left Knee Past Surgical History: Orthopedic Surgery Additional Past Surgical History / Comment(s): left knee Past Psychological History: Anxiety, Bipolar, Depression, PTSD Smoking Status: Current every day smoker Past Alcohol Use History: None Reported Past Drug Use History: Cocaine, Heroin, Prescription Drug Abuse - Past Family History Father Family Medical History: No Reported History General Exam Limitations: no limitations General appearance: alert, anxious Head exam: Present: atraumatic, normocephalic Eye exam: Present: normal appearance, PERRL Neck exam: Present: normal inspection. Absent: tenderness, meningismus Respiratory exam: Present: normal lung sounds bilaterally. Absent: respiratory distress, wheezes, rales, rhonchi Cardiovascular Exam: Present: regular rate, normal rhythm GI/Abdominal exam: Present: soft. Absent: distended, tenderness, guarding, rebound Extremities exam: Present: normal inspection Neurological exam: Present: alert Psychiatric exam: Present: anxious. Absent: homicidal ideation, suicidal ideation Skin exam: Present: warm, dry, intact. Absent: cyanosis, diaphoretic Course Vital Signs 05/27/20 05/27/20 16:18 16:55 Temperature 97.4 F L Pulse Rate 105 H 85 Respiratory 20 20 Rate Blood Pressure 174/119 151/94 O2 Sat by Pulse 96 99 Oximetry Medical Decision Making - Medical Decision Making 35-year-old male with anxiety related to coronavirus. Patient has been reassured, initially was hypertensive and tachycardic although after he was able to calm down his vital signs did improve. He had a recent psychiatric admission at outside hospital. He is not suicidal or homicidal. He states that he he was just worried about coronavirus. He will monitor symptoms at home and return with any worsening or changing symptoms. Disposition Clinical Impression: Panic attack Disposition: HOME SELF-CARE Condition: Fair Instructions (If sedation given, give patient instructions): Generalized Anxiety Disorder (ED), Panic Attack (ED) Additional Instructions: Please follow up with [facility] Is patient prescribed a controlled substance at d/c from ED?: No Referrals: None,Stated [Primary Care Provider] - 1-2 days Karo Nunes MD [REFERRING] - 1-2 days Time of Disposition: 17:18
[2020-05-27 16:55] VITALS: BP 151/94; PULSE 85
== END 2020-05-27 17:30 | disposition home or self-care (01) ==
LOC: EC 16:10
DX: F41.0 Panic disorder [episodic paroxysmal anxiety] (principal); F31.9 Bipolar disorder, unspecified; F43.10 Post-traumatic stress disorder, unspecified; J02.9 Acute pharyngitis, unspecified; F17.200 Nicotine dependence, unspecified, uncomplicated; Z88.2 Allergy status to sulfonamides; Z88.1 Allergy status to other antibiotic agents; Z86.14 Personal history of Methicillin resistant Staphylococcus aureus infection
CPT/HCPCS: 99284